=== PATIENT | female | born 1950 | race Caucasian/White ===

== ENCOUNTER 2018-03-05 12:01 | Emergency (ER) | payer OTHER ==
[~2018-03-05] VITALS: Ht 162.6 cm; Wt 68.3 kg
[2018-03-05] MEDS ORDERED: diphenhydrAMINE 25mg capsule PO ONE (13:10)
[2018-03-05] MEDS ORDERED: methylPREDNISolone sod succ 125mg/2ml vial IM ONE (13:10)
[2018-03-05 13:12] VITALS: BP 129/78
[2018-03-05] MEDS ORDERED: PRED20TA PO (13:12)
== END 2018-03-05 13:30 | disposition home or self-care (01) ==
LOC: ER 12:02
DX: L25.9 Unspecified contact dermatitis, unspecified cause (principal); Z79.899 Other long term (current) drug therapy
CPT/HCPCS: 96372; 99283; J2930; Q0163

== ENCOUNTER 2019-07-13 07:54 | Day surgery (SDC) | payer OTHER ==
[~2019-07-13] VITALS: Ht 162.6 cm; Wt 62.7 kg
[2019-07-13 08:04] VITALS: BP 142/97
[2019-07-13] MEDS ORDERED: MIDAZolam 5mg/5ml vial ONE (08:04)
[2019-07-13] MEDS ORDERED: fentaNYL/PF 50MCG/1 ML 2ML syringe ONE (08:04)
[2019-07-13] MEDS ORDERED: TYLENOL PO (08:23)
[2019-07-13] MEDS ORDERED: CALCIUM PO (08:23)
[2019-07-13] MEDS ORDERED: VITAMIN D3 PO (08:24)
[2019-07-13 09:35] VITALS: BP 96/53
[2019-07-13 09:43] VITALS: BP 95/55
[2019-07-13 09:50] VITALS: BP 100/51
[2019-07-13 10:00] VITALS: BP 99/64
== END 2019-07-13 10:15 | disposition home or self-care (01) ==
LOC: GI LAB 07:54
PROVIDERS: ATTEND Internal Medicine Gastroenterology
DX: R19.5 Other fecal abnormalities (principal); D12.0 Benign neoplasm of cecum; D12.2 Benign neoplasm of ascending colon; D12.5 Benign neoplasm of sigmoid colon; D12.4 Benign neoplasm of descending colon; K57.30 Diverticulosis of large intestine without perforation or abscess without bleeding; K64.8 Other hemorrhoids; Z83.71 Family history of colonic polyps
CPT/HCPCS: 45380; 45385; 99152; 99153; C1773; J2250; J3010; J7040; A4620

== ENCOUNTER 2019-10-09 08:50 | Outpatient (CLI) | payer BC ==
[~2019-10-09 08:50] MED LIST: CALCIUM PO; TYLENOL PO; VITAMIN D3 PO
== END 2019-10-09 23:59 | disposition home or self-care (01) ==
LOC: 64 CT 08:50
PROVIDERS: ATTEND Urology
DX: K57.30 Diverticulosis of large intestine without perforation or abscess without bleeding (principal); N85.4 Malposition of uterus
CPT/HCPCS: 74176